=== PATIENT | female | born 1975 | race Caucasian/White ===

== ENCOUNTER 2016-11-29 08:31 | Day surgery (SDC) | payer OTHER ==
[2016-11-29 09:15] LABS: PROTHROMBIN TIME 13.2 SEC (11.4-15.4)
[2016-11-29 12:20] LABS: APPEARANCE ALL TUBES CLEAR; RBC DILUENT USED NONE USED; RBC DILUTION FACTOR 1; RBC SIDE 1 0; RBC SIDE 2 0; TOTAL RBC SQUARES COUNTED 225; WHITE BLOOD CELL,CSF 1 /uL (0-5)
[2016-11-29 12:29] LABS: GLUCOSE,CSF 49 mg/dL (40-70)
--- NOTE | 2016-11-29 13:19 | RADIOLOGY REPORT (SQ) ---
EXAM DESCRIPTION: LUMBAR PUNCTURE; FLUORO/NEEDLE PLACEMENT/SPINE COMPLETED DATE/TIME: 11/29/2016 11:34 am REASON FOR STUDY: BENIGN INTRACRANIAL HYPERTENSION G93.2 BENIGN INTRACRANIAL HYPERTENSION G43.909 MIGRAINE, UNSP, NOT INTRACTABLE, WITHOUT STATUS MIGR COMPARISON: None. FLUOROSCOPY TIME: 30 seconds 1 digital radiographic image saved to PACS. TECHNIQUE: Fluoroscopic guided lumbar puncture. LIMITATIONS: None. PROCEDURE: After written consent and assessment were obtained, the patient was brought into the fluo roscopy room and placed prone on the table. The patient's lower back was prepped in a sterile fashio n and an entry site was selected under live fluoroscopic guidance. The entry site was anesthetized wi th 4 mL of 1% lidocaine. A 22 gauge spinal needle was advanced through the skin and into the thecal s ac at the right paracentral L3-4 level. After approximately 12 ml was drained, the needle was remove d and a sterile bandage was placed of the site. Specimens were sent to the lab for testing. A fluor oscopic spot image was saved to PACS confirming level access. FINDINGS: Clear CSF Opening pressure 25 cm of water. Closing pressure 16 cm of water IMPRESSION: Lumbar puncture under fluoroscopy. No immediate complication. COMMENT: Patient medication list reviewed: Yes- Quality ID# [id number]:Eligible professional attests to doc umenting in the medical record they obtained, updated, or reviewed the patient's current medications. . Quality ID 145: Final reports for procedures using fluoroscopy that document radiation exposure ham[place] lary, or exposure time and number of fluorographic images (if radiation exposure indices are not avail able) TECHNICAL DOCUMENTATION: JOB ID: [id number] [employer]- All Rights Reserved
[2016-11-29 14:17] VITALS: BP 115/72
[2016-11-30 16:39] LABS: ALBUMIN SERUM 4.4 g/dL (3.5-5.5); CSF IGG INDEX 0.5 (0.0-0.7); IGG SYNTHESIS RATE CSF -2.6 mg/day (-9.9 TO +3.3); IGG/ALBUMIN RATIO CSF 0.08 (0.00-0.25); IMMUNOGLOBULIN G CSF 1.1 mg/dL (0.0-8.6)
== END 2016-11-29 13:45 | disposition home or self-care (01) ==
LOC: RAD 08:31
PROVIDERS: ATTEND Specialist
PROC: 009U3ZX Drainage of Spinal Canal, Percutaneous Approach, Diagnostic (ICD-10-PCS; principal; 2016-11-29)
DX: G93.2 Benign intracranial hypertension (principal); G43.909 Migraine, unspecified, not intractable, without status migrainosus; Z79.899 Other long term (current) drug therapy; Z79.1 Long term (current) use of non-steroidal anti-inflammatories (NSAID); Z79.891 Long term (current) use of opiate analgesic
CPT/HCPCS: 36415; 62270; 77003; 82784; 82945; 84157; 85610; 85730; 87070; 87205; 89050